=== PATIENT | female | born 1950 | race Caucasian/White ===

== ENCOUNTER → 2017-02-11 | Outpatient (CLI) | payer OTHER, MEDICAID | LOC: FIMAGING 08:59 | PROVIDERS: ATTEND Family Medicine | DX: Z12.31 Encounter for screening mammogram for malignant neoplasm of breast (principal) | CPT/HCPCS: G0202 ==

== ENCOUNTER → 2017-02-18 | Outpatient (CLI) | payer OTHER, MEDICAID | LOC: FIMAGING 12:47 | PROVIDERS: ATTEND Family Medicine | DX: N63 Unspecified lump in breast (principal) ==

== ENCOUNTER → 2017-03-02 | Outpatient (CLI) | payer OTHER, MEDICAID ==
[~2017-03-02] MED LIST: BUPIVACAINE 0.5% 10 ML SDV ONE; LIDO/EPI 1% **Not for Epidural 20 ML MDV ONE; LIDOCAINE 1% 300 MG/30 ML SDV ONE
== END ==
LOC: FIMAGING 07:08
PROVIDERS: ATTEND Family Medicine
PROC: 0HBU3ZX Excision of Left Breast, Percutaneous Approach, Diagnostic (ICD-10-PCS; principal; 2017-03-02)
DX: C50.912 Malignant neoplasm of unspecified site of left female breast (principal)
CPT/HCPCS: 19083; 88305; 88341; 88342; 88360; 88361; G0206

== ENCOUNTER 2017-04-03 06:12 | Day surgery (SDC) | payer OTHER, MEDICAID ==
[2017-04-03] MEDS ORDERED: LR 1,000 ML IV ONE (06:46)
[2017-04-03] MEDS ORDERED: CEFAZOLIN 2 GM/DEXTROSE/100 ML BAG IV ONE (07:16)
[2017-04-03] MEDS ORDERED: ceFAZolin 2 GM/DEXTROSE 100 ML IV ONE (07:25)
[2017-04-03] MEDS ORDERED: LIDOCAINE 1% 300 MG/30 ML SDV ONE (07:44)
--- NOTE | 2017-04-03 08:05 | PDHPUP ---
History & Physical Update H&P update statement: This history and physical update is based on an assessment of the patient which was completed after admission or registration (within 24 hours), but prior to the surgery/procedure. H&P update: H&P reviewed & patient examined, no change in patient's condition since H&P completed
[2017-04-03] MEDS ORDERED: BUPIVACAINE 0.5% 30 ML SDV ONE (09:35)
[2017-04-03] MEDS ORDERED: MIDAZOLAM 2 MG/2 ML VIAL ONE (09:50)
[2017-04-03] MEDS ORDERED: MIDAZOLAM 2 MG/2 ML VIAL IVP ONE (09:51)
--- NOTE | 2017-04-03 09:54 | PDANEPAE ---
ANE History of Present Illness breast ca s/f lumpectomy and sentinal node bx ANE Past Medical History - Cardiovascular History Hx Hypertension: No Hx Arrhythmias: No Hx Chest Pain: No Hx Coronary Artery / Peripheral Vascular Disease: No Hx CHF / Valvular Disease: No Hx Palpitations: No - Pulmonary History Hx COPD: No Hx Asthma/Reactive Airway Disease: No Hx Recent Upper Respiratory Infection: No Hx Oxygen in Use at Home: No Hx Sleep Apnea: No Sleep Apnea Screening Result - Last Documented: Negative - Neurologic History Hx Cerebrovascular Accident: No Hx Seizures: No Hx Dementia: No - Endocrine History Hx Diabetes: No - Renal History Hx Renal Disorders: Yes Renal History Comment: overactive bladder - Liver History Hx Hepatic Disorders: No - Neurological & Psychiatric Hx Hx Neurological and Psychiatric Disorders: No - Cancer History Hx Cancer: Yes Cancer History Comment: 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 02/2017 breast ca. just finished radiation 03/26/17 - Congenital Disorder History Hx Congenital Disorders: No - GI History Hx Gastrointestinal Disorders: Yes Gastrointestinal History Comment: gi issues during radiation - Other Health History Other Health History: wears oxytrol patches for otc. actinic keratoses - Chronic Pain History Chronic Pain: No - Surgical History Prior Surgeries: 12/2016 hysterectomy total. 12/25/16 mohs procedure on nose. laparascopic in for adhesions. 2011 toe surgery ANE Review of Systems - Exercise capacity METS (RN): 4 METS ANE Patient History - Allergies Allergies/Adverse Reactions: povidone-iodine [From Betadine] Allergy (Verified 03/27/17 16:00) Rash soap [From Betadine] Allergy (Verified 03/27/17 16:00) Rash - Home Medications Home Medications: Oxybutynin [Oxytrol] 04/03/17 [Last Taken 04/02/17] - NPO status NPO Since - Liquids (Date): 04/03/17 NPO Since - Liquids (Time): 04:30 (clear hinojosa juice) NPO Since - Solids (Date): 04/02/17 NPO Since - Solids (Time): 21:00 - Anes Hx Anes Hx: no prior problems - Smoking Hx Smoking Status: Never smoked - Alcohol Use Alcohol Use: None - Family Anes Hx Family Anes Hx: none Family Hx Anesthesia Complications: none ANE Labs/Vital Signs - Vital Signs Blood Pressure: 131/66 Heart Rate: 65 Respiratory Rate: 15 O2 Sat (%): 95 Height: 162.56 cm Weight: 77.111 kg ANE Physical Exam - Airway Mallampati Score: Class 1 Mouth exam: normal dental/mouth exam - Pulmonary Pulmonary: no respiratory distress - Cardiovascular Cardiovascular: regular rate and rhythym - ASA Status ASA Status: I ANE Anesthesia Plan Anesthesia Plan: GA w LMA (R/B/A explained and patient agrees to proceed) Total IV Anesthesia: Yes
[2017-04-03] MEDS ORDERED: fentaNYL 100 MCG/2 ML INJ ONE (09:57)
[2017-04-03] MEDS ORDERED: DEXAMETHASONE 4 MG/ML VIAL ONE (09:58)
[2017-04-03] MEDS ORDERED: LIDOCAINE 2% JELLY 5 ML TUBE ONE (09:58)
[2017-04-03] MEDS ORDERED: LIDOCAINE 2% 100 MG/5 ML SYR ONE (09:58)
[2017-04-03] MEDS ORDERED: ONDANSETRON 4 MG/2 ML VIAL ONE (09:58)
[2017-04-03] MEDS ORDERED: PROPOFOL/EMULSION 500 MG/50 ML BOTTLE IV ONE ×2 (09:58→10:37)
[2017-04-03] MEDS ORDERED: fentaNYL 100 MCG/2 ML INJ IVP PRN (10:49)
[2017-04-03] MEDS ORDERED: NALOXONE HCL 0.4 MG/ML INJ IVP PRN (10:49)
[2017-04-03] MEDS ORDERED: MEPERIDINE 25 MG/ML SYR IVP PRN (10:49)
[2017-04-03] MEDS ORDERED: ALBUTEROL 3 ML DEYVIAL IH PRN (10:49)
[2017-04-03] MEDS ORDERED: DEXAMETHASONE 4 MG/ML VIAL IVP PRN (10:49)
[2017-04-03] MEDS ORDERED: ACETAMINOPHEN 500 MG TAB PO PRN (10:49)
[2017-04-03] MEDS ORDERED: PROMETHAZINE HCL 25 MG/ML INJ IVP PRN (10:49)
[2017-04-03] MEDS ORDERED: LABETALOL HCL 50 MG/10 ML SYR IVP PRN (10:49)
[2017-04-03] MEDS ORDERED: LR 500 ML IV PRN (10:49)
[2017-04-03] MEDS ORDERED: ONDANSETRON 4 MG/2 ML VIAL IVP PRN (10:49)
[2017-04-03] MEDS ORDERED: OXYCODONE/APAP 5/325 TAB PO PRN (10:49)
[2017-04-03] MEDS ORDERED: METOCLOPRAMIDE 10 MG/2 ML VIAL IVP PRN (10:49)
[2017-04-03] MEDS ORDERED: HYDROCODONE/APAP 5/325 TAB PO PRN (10:49)
--- NOTE | 2017-04-03 10:52 | POSTOPPROG ---
Post Op Note Date of Operation: 04/03/17 Surgeon: Mandi Cintron Anesthesiologist: sabine Anesthesia: GET(General Endotracheal) Pre-op Diagnosis: left invasive ductal Post-op Diagnosis: same Indication: 67 year old with left breast cancer Procedure: left lumpectomy L SLN Findings: neg node Inf/Abcess present in the surg proc area at time of surgery?: No EBL: Minimal Specimen(s): lump, sln, margins
[2017-04-03 11:32] VITALS: TEMP 97
[2017-04-03] MEDS ORDERED: ACETAMINOPHEN 500 MG TAB ONE (11:46)
[2017-04-03 12:25] VITALS: RESP 15
[2017-04-03 13:04] VITALS: BP 132/77; PULSE 67; O2SAT 95
--- NOTE | 2017-04-03 17:58 | POSTANESTH ---
Post Anesthetic Evaluation Cardiovascular Status: Normal, Stable Respiratory Status: Normal, Stable Level of Consciousness/Mental Status: Can Participate in Eval Pain Control: Adequate, Prn Tx Ordered Nausea/Vomiting Control: Adequate, Prn Tx Ordered Complications Possibly Related to Anesthesia: None Noted
--- NOTE | 2017-04-03 20:40 | GOP ---
[f rep st] OPERATIVE REPORT DATE OF OPERATION: 04/03/2017 SURGEON: Mandi Cintron MD PRINCIPAL CLOUD ARCHITECT: DURGA Holly ANESTHESIOLOGIST: Reji Milner MD, general. PREOPERATIVE DIAGNOSIS: Left breast invasive ductal carcinoma. POSTOPERATIVE DIAGNOSIS: Left breast invasive ductal carcinoma. PROCEDURE PERFORMED: Left breast lumpectomy with left sentinel lymph node. FINDINGS: Negative sentinel lymph node. SPECIMENS: Left breast lumpectomy and left sentinel lymph node, additional margins. ESTIMATED BLOOD LOSS: 10 cc. INDICATIONS: The patient is a 67-year-old woman found to have newly diagnosed breast cancer. DESCRIPTION OF PROCEDURE: The patient was brought into the operating room, placed supine on the tab le, and general anesthesia was administered. Her left breast and axilla were prepped and draped in the usual sterile fashion. I infiltrated the area with 20 cc of 0.5% Marcaine prior to making incis ion. I made an ellipse around the wire and created superior inferior skin flaps. I dissected down beyond the level of the wire. I inked the specimen green anterior, red superior, yellow medial, blue inferior, orange lateral, black posterior and submitted this to Radiology. The clip and wire were contained within the specimen. I used the same incision, was able to use the gamma probe to guide m e into the axillary space. I broke into the axillary space and used the gamma probe to identify the sentinel lymph node, measured over 6000 ex vivo. The background was very quiet. This was submitte d to Pathology for frozen. It returned negative. Hemostasis was achieved in both cavities. I plac ed 3 titanium clips to asha the lumpectomy cavity. The wound was closed with 3-0 Vicryl followed by 4-0 Monocryl. Mastisol, Steri-Strips, and sterile dressing were applied. She was awakened in the operating room, extubated, and transferred to PACU in stable condition. /[id number]/MODL
== END 2017-04-03 12:58 | disposition home or self-care (01) ==
LOC: FSGY 06:12
PROVIDERS: ATTEND Surgery
PROC: 0HBU0ZZ Excision of Left Breast, Open Approach (ICD-10-PCS; principal; 2017-04-03 10:00)
PROC: 07B90ZX Excision of Left Internal Mammary Lymphatic, Open Approach, Diagnostic (ICD-10-PCS; principal; 2017-04-03 10:00)
DX: C50.912 Malignant neoplasm of unspecified site of left female breast (principal)
CPT/HCPCS: 19302; 76098; 78195; A9520; J0690; J1100; J2001; J2250; J2405; J2704; J3010

== ENCOUNTER → 2017-05-04 | Outpatient (CLI) | payer OTHER, MEDICAID ==
[~2017-05-04] MED LIST changes: -BUPIVACAINE 0.5% 10 ML SDV ONE; +GADOBUTROL 10 ML VIAL IVP ONE; -LIDO/EPI 1% **Not for Epidural 20 ML MDV ONE; -LIDOCAINE 1% 300 MG/30 ML SDV ONE
== END ==
LOC: FIMAGING 08:27
PROVIDERS: ATTEND Radiology Radiation Oncology
DX: Z12.39 Encounter for other screening for malignant neoplasm of breast (principal); Z85.3 Personal history of malignant neoplasm of breast
CPT/HCPCS: 0159T; A9585; C8908

== ENCOUNTER 2017-06-05 15:53 | Inpatient (IN) | payer OTHER, MEDICAID ==
[2017-06-05] MEDS ORDERED: NS 1,000 ML IV ONE (16:07)
--- NOTE | 2017-06-05 16:07 | EDPHY ---
H & P Stated Complaint: hematoma l breast post lumpectomy evacuated today/fever n/v HPI/ROS: HPI CHIEF COMPLAINT: Generalized weakness, left breast pain, nausea vomiting, fever HISTORY OF PRESENT ILLNESS: Patient very pleasant 67-year-old female she has a history of breast cancer. Left breast. She status post lumpectomy and radiation therapy. She is followed by Dr. Cintron. She has seen Dr. Cintron in his office today and had what sounds like a hematoma drained from her left breast. Patient reports she developed left breast swelling and worse yesterday over the past 48 hours. Has had chills. If she has nausea vomiting. She had an I and D and Dr. Cintron in his office today. Was sent home on oral antibiotics. However she could not get home as she felt globally weak was having chills with nausea vomiting increasing left breast pain. Left breasts swelling and redness. Past Medical History: Breast cancer Past Surgical History: Lumpectomy, hysterectomy Social History: Denies daily use drugs alcohol tobacco products. Family History: Noncontributory ROS REVIEW OF SYSTEMS: A comprehensive 10 point review of systems is otherwise negative aside from elements mentioned in the history of present illness. Exam Constitutional appears nontoxic, triage nursing summary reviewed, vital signs reviewed, awake/alert. Eyes normal conjunctivae and sclera, EOMI, PERRLA. HENT normal inspection, atraumatic, moist mucus membranes, no epistaxis, neck supple/ no meningismus, no raccoon eyes. Respiratory clear to auscultation bilaterally, normal breath sounds, no respiratory distress, no wheezing. Cardiovascular chest wall: Left breast: Erythematous and warm, tender to palpation, no crepitus, there is an outlining marker of the redness it has not went past this, lumpectomy scar present left lateral breast, no drainage, no pus , tender to palpation. rate normal, regular rhythm, no murmur, no edema, distal pulses normal. Gastrointestinal soft, non-tender, no rebound, no guarding, normal bowel sounds, no distension, no pulsatile mass. Genitourinary no CVA tenderness. Musculoskeletal no midline vertebral tenderness, full range of motion, no calf swelling, no tenderness of extremities, no meningismus, good pulses, neurovascularly intact. Skin pink, warm, & dry, no rash, skin atraumatic. Neurologic awake, alert and oriented x 3, AAOx3, moves all 4 extremities equally, motor intact, sensory intact, CN II-XII intact, normal cerebellar, normal vision, normal speech. Psychiatric normal mood/affect. Heme/Lymph/Immune no lymphadenopathy. Differential Diagnosis: Includes but is not limited to in a particular order, sepsis, bacteremia, breast abscess, breast cellulitis, MRSA infection, dehydration, electrolyte disturbance Medical Decision Making: Plan for this patient IV establishment IV fluid bolus 1 L normal saline, check electrolytes, blood cultures, lactic acid, EKG for generalized weakness, IV vancomycin [address] Cintron Re-evaluation: 1620: Spoke with Dr. Cintron in over the phone. She be glad to admit this patient for generalized weakness and rigors. He is okay with IV Vanco 1g ordered. Additionally Dr. Cintron reported to me that the patient had serous fluid removed from left breast. No tariq pus. At this time blood cultures will be sent. Lactic acid. IV fluid bolus admit for possible sepsis bacteremia with rigors. EKG interpretation by me on record in [facility] system. Impression time of EKG 16 17, sinus tachycardia rate of 101. No acute ischemia. No signs of cardiac arrhythmia. Unremarkable EKG. Plan will be for admission for rule out bacteremia sepsis. Left breast cellulitis. She is hemodynamically stable this time. Source: Patient - Personal History Current Tetanus/Diphtheria Vaccine: No - Medical/Surgical History Hx Asthma: No Hx Chronic Respiratory Disease: No Hx Diabetes: No Hx Cardiac Disease: No Hx Renal Disease: No Hx Cirrhosis: No Hx Alcoholism: No Hx HIV/AIDS: No Hx Splenectomy or Spleen Trauma: No Other PMH: denies - Social History Smoking Status: Never smoked Constitutional: Initial Vital Signs Temperature (C) 38 C 06/05/17 15:57 Heart Rate 108 H 06/05/17 15:57 Respiratory Rate 20 06/05/17 15:57 Blood Pressure 156/103 H 06/05/17 15:57 O2 Sat (%) 96 06/05/17 15:57 O2 Delivery Mode Room Air O2 (L/minute) 2 Allergies/Adverse Reactions: povidone-iodine [From Betadine] Allergy (Verified 06/05/17 15:56) Rash soap [From Betadine] Allergy (Verified 06/05/17 15:56) Rash Home Medications: Medication Instructions Recorded Herbals/Supplements -Info Only 1 ea PO DAILY 06/05/17 Vitamin B Complex [B Complex] 1 each PO DAILY 06/05/17 Medical Decision Making - Data Points Laboratory Results: Laboratory Results 06/05/17 16:15 06/05/17 16:15 Microbiology Results: MICROBIOLOGY 06/05/17 17:00 Blood Blood Culture - Preliminary 06/05/17 16:15 Blood Blood Culture - Preliminary Medications Given: Acetaminophen (Tylenol) 650 mg PO Q4H PRN PRN Reason: Pain, Mild Stop: 12/02/17 16:29 Last Admin: 06/06/17 18:39 Dose: 650 mg Piperacillin/Tazobactam/Dextrose (Zosyn 3.375 Gm (Premix)) 50 mls @ 100 mls/hr IV Q6HRS KAVITA PRN Reason: Protocol Stop: 07/06/17 11:59 Last Admin: 06/07/17 06:00 Dose: 50 mls Ondansetron HCl (Zofran) 4 mg IVP Q4HRS PRN PRN Reason: Nausea/Vomiting, Can't Take PO Stop: 12/02/17 16:18 Last Admin: 06/05/17 16:37 Dose: 4 mg Discontinued Medications Acetaminophen (Tylenol) 1,000 mg PO EDNOW ONE Stop: 06/05/17 16:16 Last Admin: 06/05/17 16:45 Dose: 1,000 mg Sodium Chloride (Ns) 1,000 mls @ 0 mls/hr IV EDNOW ONE; Wide Open PRN Reason: Protocol Stop: 06/05/17 16:08 Last Admin: 06/05/17 16:38 Dose: 1,000 mls Vancomycin/Sodium Chloride (Vancomycin 1 Gm (Premix)) 250 mls @ 250 mls/hr IV EDNOW ONE PRN Reason: Protocol Stop: 06/05/17 17:17 Last Admin: 06/05/17 16:37 Dose: 250 mls Vancomycin HCl 500 mg/ (Dextrose) 100 mls @ 100 mls/hr IV ONCE ONE Stop: 06/05/17 18:59 Last Admin: 06/05/17 18:29 Dose: 100 mls Vancomycin HCl 1.5 gm/ (Dextrose) 250 mls @ 166.667 mls/hr IV Q24H KAVITA Stop: 07/06/17 17:59 Last Admin: 06/06/17 18:40 Dose: 250 mls Departure - Departure Disposition: [facility] Acute Clinical Impression: Generalized weakness, Cellulitis of breast Fever Qualifiers: Fever type: due to other condition Qualified Code(s): R50.81 - Fever presenting with conditions classified elsewhere Nausea and vomiting Qualifiers: Vomiting type: unspecified Vomiting Intractability: non-intractable Qualified Code(s): R11.2 - Nausea with vomiting, unspecified Condition: Fair
[2017-06-05] MEDS ORDERED: ACETAMINOPHEN 500 MG TAB PO ONE (16:15)
[2017-06-05] MEDS ORDERED: VANCOMYCIN HCL/NORMAL SALINE 250 ML IV ONE (16:18)
[2017-06-05] MEDS ORDERED: ONDANSETRON 4 MG/2 ML VIAL IVP PRN (16:19)
[2017-06-05] MEDS ORDERED: ONDANSETRON DISINTEGRATING 4 MG TAB PO PRN (16:19)
--- NOTE | 2017-06-05 16:19 | CPEKG ---
Heart Rate: 101 RR Interval: 594 P-R Interval: 168 QRSD Interval: 90 QT Interval: 332 QTC Interval: 431 P Lamar: 39 QRS Lamar: 57 T Wave Lamar: 13 EKG Severity - BORDERLINE ECG - EKG Impression: SINUS TACHYCARDIA EKG Impression: PROBABLE LEFT ATRIAL ABNORMALITY Electronically Signed By: Jose Alfredo Multani 05-Jun-2017 22:59:31
[2017-06-05] MEDS ORDERED: D5W 1/2 NS W/ 20 KCl/L 1,000 ML IV SCH (16:30)
[2017-06-05 16:39] LABS: % IMMATURE GRANULYOCYTES 0.4 % (0.0-1.1); ABSOLUTE IMMATURE GRANULOCYTES 0.04 10^3/uL (0.00-0.10); ADD DIFF? NO; ADD MORPH? NO; ADD SCAN? NO; ATYPICAL LYMPHOCYTE FLAG 20 (0-99); FRAGMENT RBC FLAG 0 (0-99); HEMATOCRIT 46.5 % (38.0-47.0); LEFT SHIFT FLG 0 (0-99); LIPEMIA HEMOLYSIS FLAG 90 (0-99); MEAN CELL HEMOGLOBIN 29.5 pg (27.9-34.1); MEAN CELL HEMOGLOBIN CONCENTR. 34.4 g/dL (32.4-36.7); MEAN CELL VOLUME 85.6 fL (81.5-99.8); PLATELET CLUMPS FLAG 10 (0-99); PLATELET COUNT 185 10^3/uL (150-400); RED BLOOD CELL COUNT 5.43 10^6/uL (4.18-5.33); RED CELL DISTRIBUTION WIDTH 14.5 % (11.5-15.2)
[2017-06-05 16:57] LABS: ALANINE AMINOTRANSFERASE 51 IU/L (9-52); ALBUMIN 4.5 g/dL (3.5-5.0); ALKALINE PHOSPHATASE 128 IU/L (38-126); ANION GAP 14 mEq/L (8-16); ASPARTATE AMINOTRANSFERASE 33 IU/L (14-46); BILIRUBIN,TOTAL 0.7 mg/dL (0.1-1.4); BILIRUBIN-CONJUGATED 0.2 mg/dL (0.0-0.5); BILIRUBIN-UNCONJUGATED 0.5 mg/dL (0.0-1.1); CALCIUM 10.1 mg/dL (8.5-10.4); CARBON DIOXIDE 25 mEq/l (22-31); CHLORIDE 100 mEq/L (97-110); CREATININE 0.9 mg/dL (0.6-1.0); GLOMERULAR FILTRATION RATE > 60; GLUCOSE 104 mg/dL (70-100); MAGNESIUM 1.9 mg/dL (1.6-2.3); POTASSIUM 3.7 mEq/L (3.5-5.2); SODIUM 139 mEq/L (134-144); TOTAL PROTEIN 6.8 g/dL (6.3-8.2)
[2017-06-05 17:04] LABS: APTT 24.9 SEC (23.0-38.0); INR 0.98 (0.83-1.16); PROTIME(PATIENT) 12.9 SEC (12.0-15.0)
[2017-06-05 17:07] LABS: TROPONIN I < 0.012 ng/mL (0.000-0.034)
[2017-06-05] MEDS ORDERED: VANCOMYCIN 500 MG in D5W 100 ML IV ONE (18:00)
--- NOTE | 2017-06-05 18:09 | GHP ---
[f rep st] HISTORY AND PHYSICAL DATE OF ADMISSION: 06/05/2017 CHIEF COMPLAINT: Left breast infection. HISTORY OF PRESENT ILLNESS: The patient is a 67-year-old woman who was recently diagnosed with left breast invasive ductal carcinoma. She was taken to the operating room for lumpectomy and sentinel lymph node biopsy on 2016. Final pathology revealed 1.2 cm of invasive ductal carcinoma, negative margins, sentinel lymph node negative. She was feeling well postoperatively. She recently completed breast radiation to the area. Over the past several days , she reports feeling increased swelling, redness and pain of her left breast. Today she feels nauseated and had a slight temperature. She is not currently on any antibiotics. She was seen in our office earlier today at which time I performed an ultrasound-guided aspiration of a left breast seroma; I sent the fluid for culture and I prescribed her doxycycline. As she was waiting to have her prescription filled, she began to feel much worse, nauseated, weak, and breast pain, and is being admitted at this time for infection. PAST MEDICAL HISTORY: Endometrial cancer. Left breast cancer. Myofascial pain syndrome. Facial squamous cell carcinoma. Overactive bladder. SURGICAL HISTORY: Hysterectomy with BSO, left breast lumpectomy with sentinel lymph node biopsy. FAMILY HISTORY: Significant for stroke, cystic fibrosis, melanoma, heart attack , uterine cancer. ALLERGIES: Betadine, shellfish. SOCIAL HISTORY: She denies tobacco, alcohol or recreational drug use. REVIEW OF SYSTEMS: A 10-point review of systems negative aside from the HPI. PHYSICAL EXAMINATION: GENERAL: Well-developed, well-nourished woman, appears acutely ill and uncomfortable. HEENT: Normocephalic, atraumatic. No hearing deficits. Pupils equal and round. No scleral icterus. Mucous membranes moist. NECK: Trachea midline. RESPIRATORY: No increased work of breathing. CARDIOVASCULAR: No peripheral edema. BREASTS: The left breast is markedly erythematous and warm to the touch. Left breast larger than the right. Her surgical incision is clean, dry and intact. I performed an ultrasound in the office which showed a fluid collection in the lumpectomy bed. I performed ultrasound-guided aspiration with return of serous fluid, no gross purulence. The fluid was sent for culture. The area of erythema was marked with a pen. PSYCH: Mood and affect normal. NEURO: Grossly intact. SKIN: Otherwise, warm and dry. IMPRESSION AND PLAN: The patient is a 67-year-old woman with a recent left breast cancer, status post lumpectomy, sentinel lymph node biopsy, and radiation. She now presents with worsening cellulitis of the left breast, possibly due to an infected seroma. Culture of the seroma fluid is pending. She will be admitted at this time for intravenous, fluid resuscitation and observation. She has been started on IV vancomycin. The patient was additionally seen by Dr. Mandi Cintron, who agrees with the above impression and plan. /[id number]/MODL MTDD
[2017-06-06] MEDS: ACETAMINOPHEN 325 MG TAB PO PRN ×2 (08:25→18:39)
[2017-06-06] MEDS: PIPERACILLIN/TAZO 3.375 GM/DEX 50 ML IV SCH ×2 (12:20→17:50)
--- NOTE | 2017-06-06 12:35 | SOAPPROG ---
SOAP Progress Note Assessment/Plan: Assessment: 67yo F with left breast cellulitis. S/p lumpectomy SLN for breast cancer in March 2017, s/p radiation in May 2017 IV vancomycin. Add zosyn Erythema slightly worse this morning. Otherwise feeling better. Continue inpatient. Seen c Dr. Cintron S: feeling better as far as weakness and fatigue. feels stronger this morning. no nausea. breast still sore and warm O: sitting up in bed, comfortable NAD No increased WOB Left breast erythema extending laterally beyond marking. warm to the touch. edematous Objective: Vital Signs Temp Pulse Resp BP Pulse Ox 36.9 C 72 16 120/73 93 06/06/17 04:00 06/06/17 11:10 06/06/17 11:10 06/06/17 11:10 06/06/17 11:10 06/05/17 06/06/17 06/07/17 05:59 05:59 05:59 Intake Total 1903 Balance 1903 PT 12.9 SEC (12.0-15.0) 06/05/17 16:15 INR 0.98 (0.83-1.16) 06/05/17 16:15 ICD10 Worksheet Patient Problems: Problems Problem Status Onset Cellulitis of breast Acute Fever Acute Generalized weakness Acute Nausea and vomiting Acute
--- NOTE | 2017-06-06 12:40 | ASMTCMCOM ---
CM Note CM Note Notes: Pt admitted w/breast cellulitis; has had recent lumpectomy and lymph node bx. Met w/pt; she lives independantly in [facility] [place]; Pt is on IV ABX's currently, not sure if she will need to continue these at dc or not; if not, she will likely dc home independantly. D/W JEANNE. DOROTHEA w/f. Date Signed: 06/06/2017 12:39 PM Electronically Signed By:Bria Taylor RN
[2017-06-06 16:27] LABS: COLOR PALE YELLOW; LEUKOCYTE ESTERASE,URINE NEGATIVE (NEGATIVE); NITRITE,URINE NEGATIVE (NEGATIVE)
[2017-06-06] MEDS ORDERED: VANCOMYCIN 1.5 GM in D5W 250 ML IV SCH (18:00)
[2017-06-07] MEDS: PIPERACILLIN/TAZO 3.375 GM/DEX 50 ML IV SCH ×2 (01:35→06:00)
--- NOTE | 2017-06-07 11:48 | SOAPPROG ---
SOAP Progress Note Assessment/Plan: Assessment: 67yo F with left breast cellulitis. S/p lumpectomy SLN for breast cancer in March 2017, s/p radiation in May 2017 IV vancomycin and zosyn. culture showed staph lugdunensis. sensitive to vanc. d/ c zosyn Erythema significantly less vibrant today. breast less tender, still swollen Dispo: continue c IV antibiotics. likely home tomorrow with PO antibiotics S: continues to feel better daily. breast still warm and swollen. O: sitting up in bed, comfortable NAD No increased WOB Left breast erythema still extending laterally beyond marking, but much less vibrant than yesterday. Today appears more pink. warm to the touch. swollen. less tender to palpation. 06/07/17 11:45 Objective: Vital Signs Temp Pulse Resp BP Pulse Ox 36.8 C 74 16 94/60 L 93 06/07/17 11:18 06/07/17 11:18 06/07/17 11:18 06/07/17 11:18 06/07/17 11:18 06/06/17 06/07/17 06/08/17 05:59 05:59 05:59 Intake Total 2267 Balance 2267 PT 12.9 SEC (12.0-15.0) 06/05/17 16:15 INR 0.98 (0.83-1.16) 06/05/17 16:15 ICD10 Worksheet Patient Problems: Problems Problem Status Onset Cellulitis of breast Acute Fever Acute Generalized weakness Acute Nausea and vomiting Acute
[2017-06-07] MEDS ORDERED: VANCOMYCIN 1.5 GM in D5W 250 ML IV SCH (18:30)
[2017-06-07] MEDS: ACETAMINOPHEN 325 MG TAB PO PRN (20:28)
[2017-06-07 23:09] VITALS: TEMP 98.4
[2017-06-08 07:59] VITALS: O2SAT 94
[2017-06-08 12:23] VITALS: BP 127/72; PULSE 76; RESP 18
[2017-06-08] MEDS ORDERED: VANCOMYCIN 1.5 GM in D5W 250 ML IV ONE (12:30)
== END 2017-06-08 16:02 | disposition home or self-care (01) | DRG 601 ==
LOC: INTOOBSV 16:19 → F3N 17:45 → OBSVTOIN 06-06 12:58 → F3N 06-07 18:51
PROVIDERS: ADMIT Surgery; ATTEND Surgery
DX: N61.0 Mastitis without abscess (principal); Z85.3 Personal history of malignant neoplasm of breast; Z92.3 Personal history of irradiation; Z85.42 Personal history of malignant neoplasm of other parts of uterus
CPT/HCPCS: G0378; J2405; J2543; J3370

== ENCOUNTER 2017-06-09 20:39 | Inpatient (IN) | payer OTHER, MEDICAID ==
[2017-06-09] MEDS ORDERED: ACETAMINOPHEN 325 MG TAB PO PRN (20:44)
[2017-06-09] MEDS ORDERED: ONDANSETRON 4 MG/2 ML VIAL IVP PRN (20:45)
[2017-06-09] MEDS ORDERED: ceFAZolin 1 GM in NS 100 ML IV SCH (21:00)
[2017-06-09 22:36] LABS: % IMMATURE GRANULYOCYTES 0.7 % (0.0-1.1); ABSOLUTE IMMATURE GRANULOCYTES 0.05 10^3/uL (0.00-0.10); ADD DIFF? NO; ADD MORPH? NO; ADD SCAN? NO; ATYPICAL LYMPHOCYTE FLAG 10 (0-99); FRAGMENT RBC FLAG 0 (0-99); HEMATOCRIT 41.7 % (38.0-47.0); HEMOGLOBIN 13.8 g/dL (12.6-16.3); LEFT SHIFT FLG 0 (0-99); LIPEMIA HEMOLYSIS FLAG 80 (0-99); MEAN CELL HEMOGLOBIN 28.4 pg (27.9-34.1); MEAN CELL HEMOGLOBIN CONCENTR. 33.1 g/dL (32.4-36.7); MEAN CELL VOLUME 85.8 fL (81.5-99.8); MEAN PLATELET VOLUME 9.4 fL (8.7-11.7); PLATELET CLUMPS FLAG 10 (0-99); PLATELET COUNT 233 10^3/uL (150-400); RED BLOOD CELL COUNT 4.86 10^6/uL (4.18-5.33); RED CELL DISTRIBUTION WIDTH 14.1 % (11.5-15.2)
[2017-06-09] MEDS: D5W 1/2 NS W/ 20 KCl/L 1,000 ML IV SCH (22:40)
[2017-06-10] MEDS ORDERED: LIDOCAINE 1% 300 MG/30 ML SDV ONE (10:09)
--- NOTE | 2017-06-10 10:13 | GHP ---
[f rep st] HISTORY AND PHYSICAL DATE OF ADMISSION: 06/09/2017 ADMITTING DIAGNOSIS: Left breast mastitis. HISTORY OF PRESENT ILLNESS: The patient is a 67-year-old woman who was recently diagnosed with a lef t breast invasive ductal carcinoma. She was taken to the operating room for lumpectomy, sentinel lym ph node biopsy on April 03, 2017. She recently just completed breast radiation in the area. She wa s admitted to [facility] last week with worsening breast erythema, swelling and pain. She was also febrile. She was discharged home on 06/08/2017 with oral doxycycline. Last night, unfortunately, she began to feel worse again, complaining of subjective fevers, left breast swelling and pain. She was admitt ed at this time to restart IV antibiotics, as well as undergo an ultrasound-guided aspiration by Destinee costa. Prior to her last admission, she had an ultrasound-guided needle aspiration of the left breas t seroma in the office, culture which revealed Staph. No resistance. PAST MEDICAL HISTORY: Endometrial cancer, left breast cancer, myofascial pain syndrome, facial squam ous cell carcinoma, overactive bladder. PAST SURGICAL HISTORY: Hysterectomy with BSO, left breast lumpectomy with sentinel lymph node biopsy . FAMILY HISTORY: Significant for stroke, cystic fibrosis, melanoma, heart attack, and uterine cancer. ALLERGIES: Betadine and shellfish. SOCIAL HISTORY: She denies tobacco, alcohol, or recreational drug use. She lives in [place]. REVIEW OF SYSTEMS: Ten-point review of systems negative, aside from HPI. PHYSICAL EXAMINATION: GENERAL: Well-developed, well-nourished woman, no acute distress. HEENT: No rmocephalic, atraumatic. No hearing deficits. Pupils equal and round. No scleral icterus. Mucous membranes moist. NECK: Trachea midline. RESPIRATORY: No increased work of breathing. CARDIOVASCU LAR: No peripheral edema. BREASTS: Left breast erythematous, warm to the touch and swollen, larger than the right. Surgical incision well healed. No other rash or skin changes. PSYCH: Mood and af fect normal. NEURO: Grossly intact. IMPRESSION AND PLAN: A 67-year-old woman with recurrent left breast cellulitis. She will be admitte d at this time to receive IV antibiotics. We will also schedule an ultrasound-guided aspiration with Radiology for the morning. I do not feel strongly that a culture needs to be re-sent. The patient was additionally seen by Dr. Mandi Cintron, who agrees to the above impression and plan. /[id number]/MODL
[2017-06-10] MEDS: IBUPROFEN 600 MG TAB PO PRN (12:27)
--- NOTE | 2017-06-10 19:19 | SOAPPROG ---
SOAP Progress Note Assessment/Plan: Assessment: admitted due to being febrile with recent history of mastitis s/p radiation WBC normal afebrile overnight erythema improved from Thursday. US with aspiration today Plan: 06/10/17 19:18 Objective: Vital Signs Temp Pulse Resp BP Pulse Ox 37.1 C 62 62 H 124/71 H 97 06/10/17 08:00 06/10/17 08:00 06/10/17 08:00 06/10/17 08:00 06/10/17 08:00 Laboratory Results 06/09/17 22:15 06/09/17 06/10/17 06/11/17 05:59 05:59 05:59 Intake Total 1000 Output Total 0 Balance 1000 0 ICD10 Worksheet Patient Problems: Problems Problem Status Onset Cellulitis of breast Acute Fever Acute Generalized weakness Acute Nausea and vomiting Acute
[2017-06-10] MEDS: D5W 1/2 NS W/ 20 KCl/L 1,000 ML IV SCH (21:35)
[2017-06-11] MEDS: DOXYCYCLINE HYCLATE 100 MG CAP/TAB PO SCH ×2 (10:59→20:39)
--- NOTE | 2017-06-11 11:23 | SOAPPROG ---
SOAP Progress Note Assessment/Plan: Assessment: HD #2 for mastitis S/P aspiration of seroma and irrigation of cavity Overall erythema is much improved but still firm by incision Transition to doxy and make sure continues to improve on oral antibiotics Likely dc tomorrow am S: Feeling better although still not well O: Pleasant, well nourished and well groomed woman No increased work of breathing Regular rate Erythema very pale on breast. More intense by incision and firm by incision Plan: 06/10/17 19:18 06/11/17 11:20 Objective: Vital Signs Temp Pulse Resp BP Pulse Ox 36.4 C 65 20 101/61 93 06/11/17 01:20 06/11/17 01:20 06/11/17 01:20 06/11/17 01:20 06/11/17 01:20 Laboratory Results 06/09/17 22:15 06/10/17 06/11/17 06/12/17 05:59 05:59 05:59 Intake Total 1000 Output Total 0 Balance 1000 0 ICD10 Worksheet Patient Problems: Problems Problem Status Onset Cellulitis of breast Acute Fever Acute Generalized weakness Acute Nausea and vomiting Acute
[2017-06-11] MEDS: IBUPROFEN 600 MG TAB PO PRN (13:23)
[2017-06-12 00:28] VITALS: RESP 16
[2017-06-12 07:59] VITALS: BP 110/74; PULSE 75; TEMP 97.7; O2SAT 94
[2017-06-12] MEDS ORDERED: SOLIFENACIN SUCCINATE 5 MG TAB PO SCH (08:00)
[2017-06-12] MEDS: DOXYCYCLINE HYCLATE 100 MG CAP/TAB PO SCH (08:12)
--- NOTE | 2017-06-12 09:19 | SOAPPROG ---
SOAP Progress Note Assessment/Plan: Assessment: HD #3 for mastitis S/P aspiration of seroma and irrigation of cavity Overall erythema is much improved but still firm by incision Tolerating PO doxy well. DC this morning with close outpatient follow-up. F/u Thursday or thursday. S: Feeling great this morning, much better O: Pleasant, well nourished and well groomed woman No increased work of breathing Regular rate Erythema very pale on breast. More intense by incision and firm by incision Objective: Vital Signs Temp Pulse Resp BP Pulse Ox 36.5 C 75 16 110/74 94 06/12/17 07:59 06/12/17 07:59 06/12/17 07:59 06/12/17 07:59 06/12/17 07:59 Laboratory Results 06/09/17 22:15 06/11/17 06/12/17 06/13/17 05:59 05:59 05:59 Output Total 0 Balance 0 ICD10 Worksheet Patient Problems: Problems Problem Status Onset Cellulitis of breast Acute Fever Acute Generalized weakness Acute Nausea and vomiting Acute
== END 2017-06-12 09:30 | disposition home or self-care (01) | DRG 601 ==
LOC: FOB 21:32 → OBSVTOIN 06-10 15:26
PROVIDERS: ADMIT Surgery; ATTEND Surgery
PROC: 0H9U3ZX Drainage of Left Breast, Percutaneous Approach, Diagnostic (ICD-10-PCS; principal; 2017-06-10)
DX: N61.0 Mastitis without abscess (principal); Z85.3 Personal history of malignant neoplasm of breast; Z92.3 Personal history of irradiation; Z85.42 Personal history of malignant neoplasm of other parts of uterus
CPT/HCPCS: G0378; J0690

== ENCOUNTER → 2017-06-12 | Outpatient (CLI) | payer OTHER, MEDICAID | LOC: FIMAGING 10:10 | PROVIDERS: ATTEND Internal Medicine Hematology & Oncology | DX: Z78.0 Asymptomatic menopausal state (principal); C50.412 Malignant neoplasm of upper-outer quadrant of left female breast ==

== ENCOUNTER → 2017-06-16 | Outpatient (CLI) | payer OTHER, MEDICAID ==
[~2017-06-16] MED LIST changes: -GADOBUTROL 10 ML VIAL IVP ONE; +LIDOCAINE 1% 300 MG/30 ML SDV ONE
== END ==
LOC: FIMAGING 16:26
PROVIDERS: ATTEND Radiology Diagnostic Radiology
PROC: BH41ZZZ Ultrasonography of Left Breast (ICD-10-PCS; principal; 2017-06-16)
PROC: 0H9U3ZZ Drainage of Left Breast, Percutaneous Approach (ICD-10-PCS; principal; 2017-06-16)
DX: M79.81 Nontraumatic hematoma of soft tissue (principal)

== ENCOUNTER 2017-06-27 06:54 | Inpatient (IN) | payer OTHER, MEDICAID ==
--- NOTE | 2017-06-26 18:06 | PDGENHP ---
History and Physical - Chief Complaint mastitis - History of Present Illness S/P lumpectomy in 03/2017 followed by radiation and developed significant staph sensitive mastitis that required two hospital admissions. Drain placed by Dr. Cardenas two days ago. Drain removed and erythema on left breast worsened History Information - Allergies/Home Medication List Allergies/Adverse Reactions: povidone-iodine [From Betadine] Allergy (Verified 06/05/17 15:56) Rash soap [From Betadine] Allergy (Verified 06/05/17 15:56) Rash Home Medications: Herbals/Supplements -Info Only 1 ea PO DAILY 06/05/17 [Last Taken Unknown] Vitamin B Complex [B Complex] 1 each PO DAILY 06/05/17 [Last Taken Unknown] Solifenacin Succinate [Vesicare 5 MG (*)] 10 mg PO DAILY8 06/11/17 [Last Taken 06/09/17] I have personally reviewed and updated: family history, medical history, social history, surgical history Past Medical History: history of endometrial cancer. History of left breast cancer - Surgical History Additional surgical history: lumpectomy, sentinel node, hysterectomy - Family History Positive for: cancer - Social History Smoking Status: Never smoked Review of Systems Review of Systems: ROS: 10pt was reviewed & negative except for what was stated in HPI & below ( fatigue and pain in left breast) Physical Exam Physical Exam: General: Pleasant, well-nourished and well-groomed Woman HENT: Normocephalic, no gross hearing deficits, mucous membranes moist, pupils equal and round, no scleral icterus Lungs: Clear to auscultation bilaterally, No increased work of breathing Cardiac: Regular rate, no peripheral edema left breast with cellulitis and firmness by incision in the left upper outer quadrant Abdomen: Bowel sounds present, soft and nontender. Incisions clean dry and intact Skin: Warm and dry. MSK: Normal gait and normal nails Psych: Mood and affect normal Neuro: Grossly intact Assessment & Plan Assessment: 67-year-old with mastitis status post infected seroma status post lumpectomy and radiation Plan: I will take her to the operating room to evacuate the seroma clean the cavity and placed a wound VAC. The risks and benefits including but not limited to infection, bleeding, prolonged wound healing were discussed.
[~2017-06-27 06:54] MED LIST changes: -LIDOCAINE 1% 300 MG/30 ML SDV ONE; +ceFAZolin 2 GM/SWFI 2 GM/20 ML SYR IVP ONE
--- NOTE | 2017-06-27 07:12 | EDPHY ---
ED Progress Note Narrative: Here for preop only - not ED visit. No ED physician evaluation performed
--- NOTE | 2017-06-27 09:40 | PDANEPAE ---
ANE History of Present Illness 67 year old female for I&D of breast. Patient recently s/p hysterectomy and lumpectomy. ANE Past Medical History - Cardiovascular History Hx Hypertension: No Hx Arrhythmias: No Hx Chest Pain: No Hx Coronary Artery / Peripheral Vascular Disease: No Hx CHF / Valvular Disease: No Hx Palpitations: No - Pulmonary History Hx COPD: No Hx Asthma/Reactive Airway Disease: No Hx Recent Upper Respiratory Infection: No Hx Oxygen in Use at Home: No Hx Sleep Apnea: No - Neurologic History Hx Cerebrovascular Accident: No Hx Seizures: No Hx Dementia: No - Endocrine History Hx Diabetes: No Hypothyroid: No Hyperthyroid: No - Renal History Hx Renal Disorders: Yes Renal History Comment: overactive bladder - Liver History Hx Hepatic Disorders: No - Neurological & Psychiatric Hx Hx Neurological and Psychiatric Disorders: No - Cancer History Hx Cancer: Yes Cancer History Comment: 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 02/2017 breast ca. just finished radiation 03/26/17 - Congenital Disorder History Hx Congenital Disorders: No - GI History Hx Gastrointestinal Disorders: Yes Gastrointestinal History Comment: gi issues during radiation - Other Health History Other Health History: wears oxytrol patches for otc. actinic keratoses - Chronic Pain History Chronic Pain: No - Surgical History Prior Surgeries: 12/2016 hysterectomy total. 12/25/16 mohs procedure on nose. laparascopic in for adhesions. 2011 toe surgery ANE Review of Systems Review of systems is: negative Review of Systems: - Exercise capacity Exercise capacity: >=4 METS ANE Patient History - Allergies Allergies/Adverse Reactions: povidone-iodine [From Betadine] Allergy (Verified 06/27/17 07:05) Rash soap [From Betadine] Allergy (Verified 06/27/17 07:05) Rash - Home Medications Home medications: home medication list seen and reviewed Home Medications: Herbals/Supplements -Info Only 1 ea PO DAILY 06/05/17 [Last Taken Unknown] Vitamin B Complex [B Complex] 1 each PO DAILY 06/05/17 [Last Taken Unknown] Solifenacin Succinate [Vesicare 5 MG (*)] 10 mg PO DAILY8 06/11/17 [Last Taken 06/09/17] - NPO status NPO Status: no food or drink >8 hours NPO Since - Liquids (Date): 06/27/17 NPO Since - Liquids (Time): 05:00 NPO Since - Solids (Date): 06/26/17 NPO Since - Solids (Time): 21:00 - Anes Hx Anes Hx: no prior problems - Smoking Hx Smoking Status: Never smoked Marijuana use: No - Alcohol Use Alcohol Use: None - Family Anes Hx Family Anes Hx: neg - N/A Family Hx Anesthesia Complications: none ANE Labs/Vital Signs - Vital Signs Vital Signs: reviewed preoperatively; see RN documention for details Blood Pressure: 135/79 Heart Rate: 64 Respiratory Rate: 16 O2 Sat (%): 96 Height: 162.56 cm Weight: 79.379 kg ANE Physical Exam - Airway Neck exam: FROM Mallampati Score: Class 2 Mouth exam: normal dental/mouth exam - Pulmonary Pulmonary: no respiratory distress - Cardiovascular Cardiovascular: regular rate and rhythym - ASA Status ASA Status: II ANE Anesthesia Plan Anesthesia Plan: GA w LMA Total IV Anesthesia: Yes
[2017-06-27] MEDS ORDERED: PROPOFOL/EMULSION 500 MG/50 ML BOTTLE IV ONE ×2 (09:41→10:01)
[2017-06-27] MEDS ORDERED: BUPIVACAINE 0.5% 30 ML SDV ONE (09:53)
[2017-06-27] MEDS ORDERED: DEXAMETHASONE 4 MG/ML VIAL ONE (10:11)
[2017-06-27] MEDS ORDERED: ONDANSETRON 4 MG/2 ML VIAL ONE (10:11)
[2017-06-27] MEDS ORDERED: LR 500 ML IV PRN (10:21)
[2017-06-27] MEDS ORDERED: NALOXONE HCL 0.4 MG/ML INJ IVP PRN (10:21)
[2017-06-27] MEDS ORDERED: ONDANSETRON 4 MG/2 ML VIAL IVP PRN ×2 (10:21→10:36)
[2017-06-27] MEDS ORDERED: HYDROmorphONE/DILAUDID 1 MG/ML INJ IVP PRN (10:21)
[2017-06-27] MEDS ORDERED: HYDROCODONE/APAP 5/325 TAB PO PRN (10:21)
[2017-06-27] MEDS ORDERED: ACETAMINOPHEN 325 MG TAB PO PRN (10:36)
--- NOTE | 2017-06-27 10:40 | POSTOPPROG ---
Post Op Note Date of Operation: 06/27/17 Surgeon: Mandi Cintron Technology Lead: zohaib Anesthesiologist: antionette Anesthesia: GET(General Endotracheal) Pre-op Diagnosis: mastitis, infected seroma Post-op Diagnosis: same Indication: 67 yo sp lumpectomy, sln, radiation with recurrent mastitis. Procedure: evacuation seroma and seroma cavity, misonix and wv Findings: capusule in seroma cavity Inf/Abcess present in the surg proc area at time of surgery?: Yes Depth: Superfical (Skin SQ) EBL: Minimal Drains: Wound Vac Specimen(s): tissue for culture
[2017-06-27] MEDS ORDERED: KETOROLAC 15 MG/1 ML SDV ONE (11:06)
[2017-06-27] MEDS: KETOROLAC 15 MG/1 ML SDV IVP PRN (11:08)
[2017-06-27] MEDS ORDERED: fentaNYL 100 MCG/2 ML INJ ONE (11:13)
[2017-06-27] MEDS: fentaNYL 100 MCG/2 ML INJ IVP PRN ×3 (11:15→11:36)
[2017-06-27] MEDS ORDERED: HYDROmorphONE/DILAUDID 1 MG/ML INJ ONE (11:38)
--- NOTE | 2017-06-27 12:02 | POSTANESTH ---
Post Anesthetic Evaluation Cardiovascular Status: Normal, Stable, Similar to Pre-Op Cond Respiratory Status: Normal, Stable, Similar to Pre-op Cond. Level of Consciousness/Mental Status: Can Participate in Eval, Alert and Oriented Pain Control: Adequate, Prn Tx Ordered Nausea/Vomiting Control: Adequate, Prn Tx Ordered Complications Possibly Related to Anesthesia: None Noted
[2017-06-27] MEDS: HYDROCODONE/APAP 5/325 TAB PO PRN ×3 (12:29→21:38)
[2017-06-27] MEDS ORDERED: ceFAZolin 1 GM in D5W 50 ML IV SCH (14:00)
[2017-06-28 05:09] LABS: % IMMATURE GRANULYOCYTES 0.3 % (0.0-1.1); ABSOLUTE IMMATURE GRANULOCYTES 0.03 10^3/uL (0.00-0.10); ADD DIFF? NO; ADD MORPH? NO; ADD SCAN? NO; ATYPICAL LYMPHOCYTE FLAG 0 (0-99); FRAGMENT RBC FLAG 0 (0-99); HEMATOCRIT 38.2 % (38.0-47.0); HEMOGLOBIN 12.4 g/dL (12.6-16.3); LEFT SHIFT FLG 0 (0-99); LIPEMIA HEMOLYSIS FLAG 80 (0-99); MEAN CELL HEMOGLOBIN 28.2 pg (27.9-34.1); MEAN CELL HEMOGLOBIN CONCENTR. 32.5 g/dL (32.4-36.7); MEAN PLATELET VOLUME 9.1 fL (8.7-11.7); PLATELET CLUMPS FLAG 0 (0-99); PLATELET COUNT 191 10^3/uL (150-400); RED BLOOD CELL COUNT 4.39 10^6/uL (4.18-5.33); RED CELL DISTRIBUTION WIDTH 13.8 % (11.5-15.2)
[2017-06-28] MEDS: KETOROLAC 15 MG/1 ML SDV IVP PRN ×2 (08:31→18:48)
[2017-06-28] MEDS ORDERED: POLYETHYLENE GLYCOL 3350 17 GM PKT PO PRN (09:51)
[2017-06-28] MEDS ORDERED: MAGNESIUM HYDROXIDE 30 ML UDCUP PO PRN (09:51)
[2017-06-28] MEDS ORDERED: LACTULOSE 20 GM/30 ML UDCUP PO PRN (09:51)
[2017-06-28] MEDS ORDERED: BISACODYL 10 MG SUPP PR PRN (09:51)
--- NOTE | 2017-06-28 09:51 | SOAPPROG ---
SOAP Progress Note Assessment/Plan: Assessment: POD # 1 s/p evacuation of encapsulated seroma with wound vac MUCH IMPROVED TODAY!!! I asked Dr. Figueroa to see her to discuss length of antibiotics and possibility of transitioning to oral anticipate discharge tomorrow with packing and either SNaP vac in [facility] on Thu. If SNAaP not approved then home vac (can be applied outpatient if not authorized and delivered by Thursday) S: feeling better today. Only toradol so far today O: Erythema much improved. wound vac to suction Plan: 06/28/17 09:45 Objective: Vital Signs Temp Pulse Resp BP Pulse Ox 36.6 C 66 12 111/61 95 06/28/17 08:00 06/28/17 08:00 06/28/17 08:00 06/28/17 08:00 06/28/17 08:00 Microbiology 06/27/17 10:00 Gram Stain - Final Breast - Tissue Laboratory Results 06/28/17 04:59 06/27/17 06/28/17 06/29/17 05:59 05:59 05:59 Intake Total 2350 Output Total 0 Balance 2350 ICD10 Worksheet Patient Problems: Problems Problem Status Onset Cellulitis of breast Acute Fever Acute Generalized weakness Acute Nausea and vomiting Acute
--- NOTE | 2017-06-28 10:53 | ASMTCMCOM ---
CM Note CM Note Notes: Chart reviewed. Met with patient to review dc plan of care. She states she has good support. Likely to dc home independent tomorrow and f/u with Dr. Cintron as outpatient for small would therapy vac on Thursday. She states she has good support. No current needs identified. C available should needs arise. Date Signed: 06/28/2017 10:52 AM Electronically Signed By:Chantale Llanes RN
--- NOTE | 2017-06-28 18:13 | GCON ---
[f rep st] CONSULTATION INFECTIOUS DISEASE CONSULTATION DATE OF CONSULTATION: 06/28/2017 REFERRING PHYSICIAN: Mandi Cintron MD REASON FOR CONSULTATION: Recurrent left breast cellulitis. CHIEF COMPLAINT: Recurrent swelling, redness, pain of the left breast with recurrent fluid collectio n. HISTORY OF PRESENT ILLNESS: This is a 67-year-old, female with a past medical history sign ificant for endometrial cancer diagnosed in December of 2016, status post hysterectomy and bilateral salpi lujan-oophorectomy, left breast invasive ductal cancer diagnosed in March, status post left breast lum pectomy with a left sentinel node removal, April 03, 2017. Subsequent to that, she underwent radiat ion therapy in the beginning of May. About a week to 2 weeks later, she started to develop incre asing redness, pain, and swelling of the left breast. She came in to see Dr. Cintron and she had a nee dle aspiration done that was sent for culture and it grew out Staphylococcus lugdunensis. She was no t feeling well after that visit and came immediately to the ER for further evaluation. She was hospi talized from June 05 through the . At the time, she was given empiric vancomycin and Zosyn for a day or two and then subsequently vancomycin and then subsequently discharged on doxycycline. A long with that, she had fevers and chills, nausea. She took doxycycline once a day, for 1 day, and t hen because she had recurrent redness, swelling, and pain, she came back to the ER on the and wa s hospitalized until the 12 of June. She was placed on Ancef for 2 days and then changed to dox ycycline on June 11, and then subsequently discharged on doxycycline thereafter. She continued to take doxycycline twice a day until June 26. On June 16, she had a drain placed by Dr. Farooq, and that had started to improve some of the symptoms of the redness and the swelling. It was constantino en out around June 23, and she states that once the drain was taken out, the redness started to come back again, along with pain and swelling. Yesterday, she had an incision and drainage of the s eroma cavity with some debridement of necrotic tissue apparently, and then a Wound VAC was placed. C ultures were taken. There were no organisms on the Gram stain, and so far, nothing is growing on the culture. She is currently on Ancef therapy. Infectious Disease is now consulted for further evalua tion and opinion regarding the above. Overall, the patient states that the amount of redness involvi ng her left breast is better, compared to 2 days ago, along with the swelling and discomfort. She de nies any fevers or shaking chills throughout this process. REVIEW OF SYSTEMS: GENERAL: No fevers or shaking chills. HEAD: No headaches. EYES: No change in vision. ENT: No sore throat, difficulty swallowing, ear pain, or ear drainage. CARDIOVASCULAR: N o chest pain or rapid heart beat. RESPIRATORY: No shortness of breath, cough, or sputum production. ABDOMEN: No nausea, vomiting, abdominal pain, or diarrhea. : No dysuria or hematuria. MUSCULO SKELETAL: No complaints of joint pain or muscle aches. SKIN: She has actinic keratoses, but no oth er rashes or open wounds. Rest of 10-point review of systems essentially negative except for above. PAST MEDICAL HISTORY: Significant for endometrial cancer diagnosed in December of 2016, left breast invas frank ductal carcinoma diagnosed in March 2017. PAST SURGICAL HISTORY: Significant for hysterectomy with bilateral salpingo-oophorectomy and left br east lumpectomy with left sentinel node removal. She also has had some bone spur removals involving her feet. ALLERGIES: Povidone iodine where she gets a rash and also shellfish. Same thing. SOCIAL HISTORY: She is a nonsmoker. Does not drink alcohol. She lives in [facility] on [facility], with her sister. FAMILY HISTORY: Significant for both her parents smoking and also alcoholism in the family. She has a half sister with ovarian cancer. Her mother had ovarian cancer. She had another sister with cyst ic fibrosis, who has . PHYSICAL EXAMINATION: VITAL SIGNS: Temperature current 36.7, pulse is 73, blood pressure 121/63, he art rate of 73, saturations are 92% on room air. GENERAL: Patient is sitting up in bed, in no acute respiratory distress. Awake, alert, and oriented x3. HEENT: Head is normocephalic, atraumatic. E yes without conjunctival injection or petechiae noted. Oropharynx is clear. There is no posterior e rythema or thrush. CARDIOVASCULAR: S1, S2. Regular rate and rhythm. RESPIRATORY: Clear to auscul tation bilaterally. No rhonchi or rales appreciated. ABDOMEN: Positive bowel sounds in all quadran ts. Soft, nontender, nondistended, no organomegaly appreciated. EXTREMITIES: No lower extremity ed johnny. MUSCULOSKELETAL: No obvious joint effusions. SKIN: Actinic keratoses. LEFT BREAST: Mild er ythema over the entire left breast with some induration of the soft tissue and slight warmth compared to the right breast. She has a Wound VAC on the left lateral aspect. Rough estimate of wound size, per Dr. Cintron, may be around 7 x 2 cm x 5 cm depth. LABORATORY DATA: White blood cell count is 9.0, hemoglobin 12.4, platelets are 191, neutrophil count is 85%. No chemistries done. Breast tissue culture is no organisms on the Gram stain, no growth to date. Previous records reviewed dating back to May, which showed Staphylococcus lugdunensis in her left breast aspirate, pansensitive isolate. ASSESSMENT: Recurrent left breast cellulitis with recurrent seroma, possibly infected, status post i ncision and drainage, and Wound VAC placement. PLAN: At this point, the patient is currently on Ancef, which I agree with for now. I believe she w ill require 1-2 more days of IV antibiotics and then we can transition her over to Keflex 500 mg q.6 hours. We will check her chemistries tomorrow to ensure renal dosing is not required. Would recomme nd at least 10-14 days of therapy. I have set her up for a followup appointment in our office on the 06 of July at 10 o'clock. Appointment card has been given to her. Side effects of the Keflex have been reviewed with the patient, along with the plan of care overall. Care coordinated with Dr. Cintron earlier today. I thank you very much for providing this opportunity to care for your patient in consultation. /[id number]/MODL
[2017-06-28] MEDS: SENNOSIDES/DOCUSATE SODIUM TAB PO SCH (22:04)
[2017-06-28 22:11] VITALS: RESP 16
[2017-06-29 05:07] LABS: ALANINE AMINOTRANSFERASE 30 IU/L (9-52); ALBUMIN 2.7 g/dL (3.5-5.0); ALKALINE PHOSPHATASE 76 IU/L (38-126); ANION GAP 6 mEq/L (8-16); ASPARTATE AMINOTRANSFERASE 17 IU/L (14-46); BILIRUBIN,TOTAL 0.2 mg/dL (0.1-1.4); CALCIUM 8.9 mg/dL (8.5-10.4); CARBON DIOXIDE 27 mEq/l (22-31); CHLORIDE 108 mEq/L (97-110); CREATININE 0.9 mg/dL (0.6-1.0); GLOMERULAR FILTRATION RATE > 60; GLUCOSE 81 mg/dL (70-100); POTASSIUM 4.7 mEq/L (3.5-5.2); SODIUM 141 mEq/L (134-144); TOTAL PROTEIN 4.8 g/dL (6.3-8.2)
[2017-06-29] MEDS: KETOROLAC 15 MG/1 ML SDV IVP PRN ×2 (05:27→11:41)
[2017-06-29 08:00] VITALS: BP 107/83; PULSE 70; TEMP 99.1; O2SAT 95
[2017-06-29] MEDS: SENNOSIDES/DOCUSATE SODIUM TAB PO SCH (09:03)
--- NOTE | 2017-06-29 16:40 | ASDISCHSUM ---
Discharge Information Plan Status:Home with No Needs Medically Cleared to Leave:06/28/2017 Discharge Date:06/29/2017 12:10 PM D/C Disposition: ADT D/C Disposition:Home, Routine, Self-Care Projected Discharge Date:06/29/2017 12:00 AM Transportation at D/C: Discharge Delay Reason: Follow-Up Date:06/29/2017 12:00 AM Discharge Slot: Final Diagnosis: Placement Information Patient Contact Information Contact Name:KELVIN Relationship:Sister Address: City: [facility] Phone: [facility]/Zip Code: Email: Financial Information Financial Class: Primary Plan Desc:MEDICARE IP PART B ONLY Primary Plan Number:[id number] Secondary Plan Desc:MEDICAID [place] Secondary Plan Number:[id number] Assessment Information LACE LACE Length of stay for Answers: 1 day current admission Acuity / Level of Care Answers: No. Emergency dept visits in Answers: 0 last 6 months Score: 1 Date Signed: 06/28/2017 10:44 AM Electronically Signed By:Chantale Llanes RN [facility] CM Progress Note CM Note CM Note Notes: Chart reviewed. Met with patient to review dc plan of care. She states she has good support. Likely to dc home independent tomorrow and f/u with Dr. Cintron as outpatient for small would therapy vac on Thursday. She states she has good support. No current needs identified. C available should needs arise. Date Signed: 06/28/2017 10:52 AM Electronically Signed By:Chantale Llanes RN Intervention Information Intervention Type:*IM-Signed Date of Service:06/29/2017 10:22 AM Patient Type:Inpatient Staff Member:Anjali Rocha Hours: Discipline: Severity: Comment:
--- NOTE | 2017-06-29 17:50 | SOAPPROG ---
SOAP Progress Note Assessment/Plan: Assessment/Plan: 67yo F s/p POD #2 s/p evacuation of encapsulated seroma with wound vac Redness and swelling nearly completely resolved! Wound vac transitioned to HFB ready today. SNaP vac approved and will be applied on . Discussed c ID - transition to PO keflex x 10 days Dispo - d/c today. F/u at [facility] on . F/u ID next week S- feeling well today. swelling and redness almost completely resolved. no pain O- laying in bed, comfortable, NAD Left breast wound vac removed. Wound with 100% healthy granulation tissue. Min erythema (faint pink) and no swelling. Nontender. HFB ready packing placed and allevyn Objective: Vital Signs Temp Pulse Resp BP Pulse Ox 37.3 C 70 16 107/83 H 95 06/29/17 07:58 06/29/17 07:58 06/29/17 07:58 06/29/17 07:58 06/29/17 07:58 Microbiology 06/27/17 10:00 Gram Stain - Final Breast - Tissue Laboratory Results 06/28/17 04:59 06/29/17 04:15 06/28/17 06/29/17 06/30/17 05:59 05:59 05:59 Intake Total 2350 500 Output Total 0 Balance 2350 500 ICD10 Worksheet Patient Problems: Problems Problem Status Onset Cellulitis of breast Acute Fever Acute Generalized weakness Acute Nausea and vomiting Acute
== END 2017-06-29 12:10 | disposition home or self-care (01) | DRG 909 ==
LOC: F3E 08:07 → EDSTATUS 09:30 → F3E 12:07
PROVIDERS: ADMIT Surgery; ATTEND Surgery
PROC: 0HBU0ZZ Excision of Left Breast, Open Approach (ICD-10-PCS; principal; 2017-06-27 09:30)
DX: L76.34 Postprocedural seroma of skin and subcutaneous tissue following other procedure (principal); N61.0 Mastitis without abscess; Z85.42 Personal history of malignant neoplasm of other parts of uterus; Z90.710 Acquired absence of both cervix and uterus
CPT/HCPCS: J0690; J1100; J1170; J1885; J2405; J2704; J3010

== ENCOUNTER → 2017-07-23 | Outpatient (CLI) | payer OTHER, MEDICAID ==
[~2017-07-23] MED LIST changes: +GADOBUTROL 10 ML VIAL IVP ONE; -ceFAZolin 2 GM/SWFI 2 GM/20 ML SYR IVP ONE
== END ==
LOC: FIMAGING 07:04
PROVIDERS: ATTEND Internal Medicine Hematology & Oncology
DX: E27.9 Disorder of adrenal gland, unspecified (principal); K76.89 Other specified diseases of liver; K80.20 Calculus of gallbladder without cholecystitis without obstruction; C50.412 Malignant neoplasm of upper-outer quadrant of left female breast
CPT/HCPCS: 74183; A9585

== ENCOUNTER 2017-08-03 14:22 | Inpatient (IN) | payer OTHER, MEDICAID ==
--- NOTE | 2017-08-03 15:24 | EDPHY ---
H & P Time Seen by Provider: 08/03/17 15:04 HPI/ROS: CHIEF COMPLAINT: Left breast pain HISTORY OF PRESENT ILLNESS: Patient is a 67-year-old female who presents emergency department with left breast pain. The patient had a complicated history after having lumpectomy. 2 months ago she was diagnosed with a staph infection of her left breast. She was on antibiotics for total 30 days. She has been followed by the wound Clinic. She sees Dr. Cintron 2 days a week. She had a routine visit last Thursday and things seem to be going well. However, at 3 :00 a.m. last night she woke up with severe left breast pain. It is under the location of her draining wound. She denies fevers or chills. No shortness of breath. No nausea or vomiting. REVIEW OF SYSTEMS: My complete review of systems is negative except as mentioned in the HPI. Past Medical/Surgical History: Includes cervical cancer, breast cancer, left breast infection Past surgical history: Includes hysterectomy, lumpectomy Social history: Patient does not smoke Smoking Status: Never smoked Physical Exam: GENERAL: Well-appearing, in no acute distress, alert. HEENT: Eyes normal to inspection, normal pharynx, no signs of dehydration. NECK: [No thyromegaly, no lymphadenopathy, supple. RESPIRATORY: Clear to auscultation bilaterally, no rales, rhonchi or wheezing. CVS: Regular rate and rhythm, no rubs, murmurs, or gallops. Chest: Patient's left breast appears mildly erythematous. I removed the patient's dressing. There is significant redness surrounding the open wound with foam dressing in place. I palpate no fluctuance. There appears to be red streaking into the left axilla. ABDOMEN: Soft, nontender, nondistended, no organomegaly. BACK: Normal to inspection, no CVA tenderness. SKIN: Normal color, no rash, warm, dry. No pallor. EXTREMITIES: No pedal edema, no calf tenderness, no Homans sign or cords, no joint swelling. NEURO/PSYCH: Alert and oriented x3, normal mood and affect, normal motor sensory exam. No obvious cranial nerve deficit. Constitutional: Initial Vital Signs Temperature (C) 36.5 C 08/03/17 14:25 Heart Rate 89 08/03/17 14:25 Respiratory Rate 18 08/03/17 14:25 Blood Pressure 154/74 H 08/03/17 14:25 O2 Sat (%) 96 08/03/17 14:25 O2 Delivery Mode Room Air Allergies/Adverse Reactions: povidone-iodine [From Betadine] Allergy (Verified 08/03/17 14:24) Rash soap [From Betadine] Allergy (Verified 08/03/17 14:24) Rash Home Medications: Medication Instructions Recorded Solifenacin Succinate [Vesicare 5 0 mg PO DAILY8 08/03/17 MG (*)] oxyCODONE/APAP 5/325 [Percocet 1 tab PO 08/03/17 5/325 (*)] Medical Decision Making ED Course/Re-evaluation: In the emergency department I discussed possible etiologies with the patient. Answered all her questions. I subsequently contacted Dr. Rosenberg office. I spoke with Dr. Clayton who was on-call. I informed him of the findings. He states he will come to the emergency department to evaluate the patient. He did not want me to start antibiotics until he evaluates the patient. Laboratory studies including cultures were ordered. Differential Diagnosis: My differential includes but is not limited to abscess, cellulitis, MRI say infection, bacteremia, sepsis Departure - Departure Disposition: [facility] Inpatient Acute Clinical Impression: Cellulitis Qualifiers: Site of cellulitis: other site Qualified Code(s): L03.818 - Cellulitis of other sites Condition: Good Referrals: NONE *PRIMARY CARE P,. [Primary Care Provider] - As per Instructions
[2017-08-03] MEDS ORDERED: ONDANSETRON DISINTEGRATING 4 MG TAB PO PRN (16:16)
[2017-08-03] MEDS ORDERED: PROMETHAZINE HCL 25 MG/ML INJ IVP PRN (16:16)
[2017-08-03] MEDS ORDERED: ONDANSETRON 4 MG/2 ML VIAL IVP PRN (16:16)
[2017-08-03 16:21] LABS: INR 0.87 (0.83-1.16); PROTIME(PATIENT) 12.1 SEC (12.0-15.0)
[2017-08-03] MEDS ORDERED: VANCOMYCIN 1.5 GM in D5W 250 ML IV SCH (16:30)
[2017-08-03] MEDS ORDERED: ONDANSETRON DISINTEGRATING 4 MG TAB ONE (16:54)
[2017-08-03] MEDS ORDERED: oxyCODONE IR 5 MG TAB ONE (16:54)
[2017-08-03] MEDS ORDERED: IBUPROFEN 200 MG TAB PO ONE (16:55)
[2017-08-03] MEDS: oxyCODONE IR 5 MG TAB PO PRN (16:59)
[2017-08-03] MEDS: IBUPROFEN 200 MG TAB PO PRN (16:59)
--- NOTE | 2017-08-03 17:06 | GHP ---
[f rep st] PREOP HISTORY AND PHYSICAL DATE OF ADMISSION: 08/03/2017 CHIEF COMPLAINT: Left breast pain. HISTORY OF PRESENT ILLNESS: This is a 67-year-old female, who is a patient of my partner, Dr. Cintron, who originally underwent left breast lumpectomy with sentinel lymph node biopsy in March of this [facility] for infiltrating ductal carcinoma. The patient subsequently had radiation therapy to the site. At any rate, developed a seroma that was originally percutaneous drained. This did not completely eradi puja the seroma and was subsequently taken back to the operating room for operative debridement. Sinc e that time, she has been on extended, both in and outpatient, antibiotic therapy as well as wound [facility] C therapy as an outpatient and recently finished her antibiotic therapy. She continues to follow up w radha Cintron twice a week, once in the wound care clinic and once and the general surgery clinic. A t any rate, she saw Dr. Cintron last Thursday. The wound continues to heal via secondary intention. At t hat point in time, the cellulitis surrounding the wound cavity was stable; she was subsequently sent home. The patient states she has felt well since that point in time, she called the answering servic e this morning, and we discussed her symptoms, mainly complaining of worsening pain around the area. She was, at that time, able to take oral intake and the pain was stable; however, she began to have n ausea with vomiting and presented here for further workup. Here in the emergency department, she comp lains of persistent pain and drainage from the site. She also states that the drainage is foul smelli ng which is also new. She also states that the cellulitis has extended from the lateral breast into t he axilla which is new finding. On my visit with the patient, she states the pain is stable and the n ew findings are there. She denies having any fevers or chills. She does endorse having nausea with v omiting. PAST MEDICAL HISTORY: Breast cancer, cervical cancer, and persistent infection of her lumpectomy sit e in the left breast. PAST SURGICAL HISTORY: Includes a hysterectomy and a lumpectomy with subsequent take back for seroma drainage and washout. SOCIAL HISTORY: Denies illicit drug use. Lives here in [place]. REVIEW OF SYSTEMS: A full 10-point review was performed. PHYSICAL EXAM: VITAL SIGNS: Temperature 36.5, blood pressure 154/74, heart rate is 89 and she is 96 % on room air. CONSTITUTIONAL: She is well-appearing. She does not appear anxious and is in no acute distress. EYES: Pupils are equal, round, and reactive. Her extraocular movements are intact. Her sclerae are anicteric. EARS, NOSE, MOUTH AND THROAT: Her mucous membranes are dry. Her hearing is n ormal. I do not see any oral mucosal ulcers. CARDIOVASCULAR: She has a regular rate and rhythm with out any murmurs. RESPIRATORY: Lungs are clear. I do not appreciate any rhonchi or palpable crepitu s. BREASTS: Left breast there is an approximate 3 x 2 area in the upper outer portion of the left inkolas ast which probes down approximately a centimeter. The underlying tissue appears pink and well perfuse d. There is some fibrinous exudate on this. There was also a deep area of induration but no appreci able fluctuance or fluid. The cellulitis tracks somewhat laterally into the axilla but it is pink, it is not beefy red and it is minimally tender to palpation. The right breast has no palpable lesions and the remainder of the breast exam, including bilateral axilla, is normal. ABDOMEN: Soft, nondist ended, nontender with good bowel sounds. BACK: Normal to inspection. SKIN: Other than the above s tated, she has no rashes or appreciable findings. LYMPHATIC, HEMATOLOGIC AND IMMUNOLOGIC: Again no axillary or groin lymphadenopathy. NEUROLOGIC: She is completely neuro intact. PSYCH: She is interacting appropriately and her thought process is linear. LABORATORY DATA: White blood cell count normal at 9, H and H stable at 14 and 43. Coags are normal w ith an INR of 0.87. Chemistry is pending. Lactic acid is normal at 1.6. A bedside ultrasound was per formed by myself, the images of which were personally interpreted. I do appreciate some subcutaneous tissue stranding but I do not appreciate any appreciable drainable abscess in either the patient's le ft breast or left axilla consistent with my physical exam findings. ASSESSMENT AND PLAN: A 67-year-old female with longstanding breast cellulitis and abscess status pos t drainage after lumpectomy for cancer. Given the patient's worsening clinical picture including her nausea vomiting as well as pain and worsening cellulitis since being seen last Thursday, I do feel gisela t this warrants inpatient admission for IV antibiotics. I did review her chart history. The last cu ltures were taken in, I think, late May and the cultures grew out Staph lugdunensis at that point in time, which was carl sensitive. The patient has since been on IV Ancef and oral Keflex therapy. Q uestion of whether or not she is developing some resistance to this although she is not currently on antibiotics. Given the findings of no drainable abscess, I feel that IV antibiotics at this point in time, are warranted. I am going to start with broad-spectrum vancomycin as I feel that it is an appr opriate treatment and we can wean this down over the next 24 hours. I discussed my findings with the patient. She agrees with admission. I also discussed my plan of care with the ED physician, Dr. Delfina silvestre. /[id number]/MODL
[2017-08-03] MEDS: D5W 1/2 NS W/ 20 KCl/L 1,000 ML IV SCH (17:33)
[2017-08-03] MEDS: HYDROmorphONE/DILAUDID 1 MG/ML INJ IVP PRN (18:02)
[2017-08-04] MEDS: HYDROmorphONE/DILAUDID 1 MG/ML INJ IVP PRN ×3 (01:59→08:25)
[2017-08-04] MEDS: D5W 1/2 NS W/ 20 KCl/L 1,000 ML IV SCH ×2 (05:22→16:00)
[2017-08-04] MEDS: IBUPROFEN 200 MG TAB PO PRN ×2 (08:26→17:07)
--- NOTE | 2017-08-04 08:31 | SOAPPROG ---
SOAP Progress Note Assessment/Plan: Assessment/Plan: 67yo F with left breast ca s/p lumpectomy and radiation, admitted with worsening pain, nausea and vomiting. increased drainage from wound with worsening odor. complicated post-radiation course of mastitis, completed course of antibiotics and wound vac therapy. IV/PO pain meds PRN IV vanco Wound bed healthy appearance - wound vac while inpatient Seen with Dr. Cintron. S: already feeling better after 1 dose of IV antibiotic. pain and swelling feels slightly less. nausea/vomiting resoled O: sitting upright in bed, comfortable, NAD No increased WOB L breast induration lateral to wound. Minimal surrounding erythema. Base of wound with some slough, but mostly healthy granulation tissue. Wound vac applied Objective: Vital Signs Temp Pulse Resp BP Pulse Ox 36.6 C 69 16 118/73 95 08/04/17 04:00 08/04/17 04:00 08/04/17 04:00 08/04/17 04:00 08/04/17 04:00 Laboratory Results 08/03/17 16:00 08/03/17 16:00 08/03/17 08/04/17 08/05/17 05:59 05:59 05:59 Intake Total 1804 Balance 1804 PT 12.1 SEC (12.0-15.0) 08/03/17 16:00 INR 0.87 (0.83-1.16) 08/03/17 16:00 ICD10 Worksheet Patient Problems: Problems Problem Status Onset Cellulitis Acute Cellulitis of breast Acute Fever Acute Generalized weakness Acute Nausea and vomiting Acute
[2017-08-04] MEDS ORDERED: SOLIFENACIN SUCCINATE 5 MG TAB PO SCH (09:00)
--- NOTE | 2017-08-04 10:04 | ASMTCMCOM ---
CM Note CM Note Notes: Patient admitted for L breast cellulitis s/p lumpectomy and radiation. Wound vac placed today, patient also receiving IV vanco. Still unknown whether she will need these therapies upon discharge, will await ID consult and further surgical notes to determine needs. Current CM Discharge plan: TBD Date Signed: 08/04/2017 10:04 AM Electronically Signed By:Marcela Fuentes RN
[2017-08-04] MEDS: oxyCODONE IR 5 MG TAB PO PRN ×2 (11:40→20:32)
[2017-08-04] MEDS: ACETAMINOPHEN 325 MG TAB PO PRN (11:40)
[2017-08-04] MEDS: VANCOMYCIN HCL/NORMAL SALINE 250 ML IV SCH (17:07)
[2017-08-04] MEDS: DOCUSATE SODIUM 100 MG CAP PO SCH ×2 (17:07→20:32)
[2017-08-05] MEDS: oxyCODONE IR 5 MG TAB PO PRN ×2 (02:14→07:40)
[2017-08-05] MEDS: IBUPROFEN 200 MG TAB PO PRN ×2 (02:14→12:37)
[2017-08-05] MEDS: D5W 1/2 NS W/ 20 KCl/L 1,000 ML IV SCH (02:17)
[2017-08-05] MEDS: VANCOMYCIN HCL/NORMAL SALINE 250 ML IV SCH (05:34)
[2017-08-05] MEDS: ACETAMINOPHEN 325 MG TAB PO PRN (07:40)
[2017-08-05 07:50] VITALS: BP 113/63; PULSE 73; RESP 14; TEMP 96.6; O2SAT 94
--- NOTE | 2017-08-05 08:13 | SOAPPROG ---
SOAP Progress Note Assessment/Plan: Assessment/Plan: 67yo F with left breast ca s/p lumpectomy and radiation, admitted with worsening pain, nausea and vomiting. increased drainage from wound with worsening odor. complicated post-radiation course of mastitis, completed course of antibiotics and wound vac therapy. PO pain meds PRN IV vanco ID consult today Wound vac while inpatient. Will likely switch back to hydrofera blue ready upon discharge - SNAP at wound center. Will NOT go with a traditional wound vac. Dispo: likely DC later today if cleared by ID. Seen with Dr. Cintron. S: heaviness of breast improved. less pain. n/v resolved. no fevers O: sitting up in bed, comfortable, NAD No increased WOB Wound vac intact to suction. Slight erythema extending towards nipple. Induration improving Objective: Vital Signs Temp Pulse Resp BP Pulse Ox 35.9 C L 73 14 113/63 94 08/05/17 07:46 08/05/17 07:46 08/05/17 07:46 08/05/17 07:46 08/05/17 07:46 Laboratory Results 08/03/17 16:00 08/03/17 16:00 08/04/17 08/05/17 08/06/17 05:59 05:59 05:59 Intake Total 1804 4962 Balance 1804 4962 PT 12.1 SEC (12.0-15.0) 08/03/17 16:00 INR 0.87 (0.83-1.16) 08/03/17 16:00 ICD10 Worksheet Patient Problems: Problems Problem Status Onset Cellulitis Acute Cellulitis of breast Acute Fever Acute Generalized weakness Acute Nausea and vomiting Acute
[2017-08-05] MEDS: DOCUSATE SODIUM 100 MG CAP PO SCH (09:47)
--- NOTE | 2017-08-05 10:53 | PCMIDPN ---
Assessment/Plan: Assessment/Plan: * Left breast cellulitis status post lumpectomy with XRT and preceding seroma: Clinically improved after initiation of vancomycin. Prior culture showed growth of Staphylococcus lugdunensis. Patient describes odor with discharge which may be related to anaerobic yolanda. Other microbiologic considerations include Staphylococcus aureus or beta-hemolytic streptococci. Suspect has localized breast lymphedema which may pose risk of recurrent cellulitis over time. If continues to experience recurrence after wound healing, would consider suppressive antibiotic therapy. Will give single dose of ceftriaxone prior to discharge given long half life. Thereafter, plan 10 days of Augmentin 875 mg orally twice daily. Patient will f/u with Dr. Figueroa on 08/17/16 at 1:00 pm. Time spent, 35 minutes, of which 1/2 was spent in education/counseling/ coordination of care related to recurrent breast cellulitis and plan of care. 08/05/17 10:47 Subjective: Patient previously followed in our office by Dr. Figueroa for left breast cellulitis associated with prior lumpectomy and radiation therapy as well as prior infected seroma. Seroma cultures initially showed growth of Staphylococcus lugdunensis. Patient was on cephalexin until early July at which point in time this was discontinued. She was using a wound VAC until mid July for ongoing wound care. Over the preceding weekend, she developed increasing pain, swelling and erythema of the left breast with increased discharge from her wound which she noted had a foul odor. This was associated with nausea and vomiting as well. She was admitted to the hospital and started on vancomycin for recurrent left breast cellulitis. Erythema, edema and tenderness have all improved with initiation of antibiotics. She did not have associated fever or chills. Given the above findings, Infectious Disease is now asked to assist in her ongoing management. Allergies: Iodine Objective: Vital Signs Temp Pulse Resp BP Pulse Ox 35.9 C L 73 14 113/63 94 08/05/17 07:46 08/05/17 07:46 08/05/17 07:46 08/05/17 07:46 08/05/17 07:46 Laboratory Results 08/03/17 16:00 08/03/17 16:00 08/04/17 08/05/17 08/06/17 05:59 05:59 05:59 Intake Total 1804 4962 Balance 1804 4962 Vancomycin # 2 Blood cultures x2 no growth - Physical Exam General Appearance: alert, no apparent distress EENT: No scleral icterus, No thrush, No conjunctival petechiae Respiratory: lungs clear, No respiratory distress Cardiac/Chest: regular rate, rhythm, No systolic murmur Abdomen: non-tender, No distended Skin: other (Left breast with faint erythema which is most prominent in dependent portion of breast and decreases significantly with elevation of breast ; wound VAC in place with mild surrounding erythema; minimal associated tenderness; no erythema extending into upper chest, shoulder or arm), No embolic lesions ICD10 Worksheet Patient Problems: Problems Problem Status Onset Cellulitis Acute Cellulitis of breast Acute Fever Acute Generalized weakness Acute Nausea and vomiting Acute
== END 2017-08-05 13:03 | disposition home or self-care (01) | DRG 601 ==
LOC: F3E 17:26 → OBSVTOIN 08-04 16:18
PROVIDERS: ADMIT Surgery; ATTEND Surgery
DX: N61.0 Mastitis without abscess (principal); Z85.3 Personal history of malignant neoplasm of breast; Z92.3 Personal history of irradiation; Z85.41 Personal history of malignant neoplasm of cervix uteri
CPT/HCPCS: G0378; J0696; J1170; J3370

== ENCOUNTER → 2018-02-12 | Outpatient (CLI) | payer OTHER, MEDICAID | LOC: FIMAGING 08:49 | PROVIDERS: ATTEND Surgery | DX: Z12.31 Encounter for screening mammogram for malignant neoplasm of breast (principal); Z85.3 Personal history of malignant neoplasm of breast ==